=== PATIENT | male | born 1950 | race Caucasian/White ===

== ENCOUNTER → 2024-08-14 | Outpatient (CLI) | payer MEDICARE, SELFPAY ==
[2024-08-14 09:08] LABS: Cardiac Risk Estimate 5.9 RATIO (4.0-6.7); Cholesterol 194 mg/dL (132-200); HDL Cholesterol 33 mg/dL (40-60); LDL Cholesterol,Calculated 135 mg/dL (0-130); Triglycerides 132 mg/dL (30-150)
== END | disposition home or self-care (01) ==
LOC: COPL 07:07
PROVIDERS: PCP Family Medicine; Referring Provider Internal Medicine Cardiovascular Disease; Visit Provider Internal Medicine Cardiovascular Disease
DX: Z01.818 Encounter for other preprocedural examination (principal); R94.31 Abnormal electrocardiogram [ECG] [EKG]
CPT/HCPCS: 36415; 80061

== ENCOUNTER → 2024-12-17 | Outpatient (CLI) | payer MEDICARE, SELFPAY ==
--- NOTE | 2024-12-17 08:00 | XR_ITS ---
EXAMINATION: PET/CT FUSION SKULL TO THIGH EXAM DATE AND TIME: December 17, 2024 0915 hours Comparison PET/CT scan January 30, 2024, February 04, 2022 INDICATIONS: Diagnosis Hodgkin's lymphoma restaging CTDI:vol (mGy) 7.75 DLP: (mGycm) 804 PROCEDURE: 15.3 mCi FDG was administered intravenously To allow for distribution and uptake of radiotracer, the patient was allowed to rest quietly in a shielded room. Imaging was performed on an integrated 16-slice PET/CT scanner, with scanning from the skull base to the mid thigh. Serum blood glucose at the time of the injection was measured 109 mg/dL. CT scanning was performed without oral or intravenous contrast material. FINDINGS: Head and Neck: Hypermetabolic thyroid lobes The visualized portions of the brain are normal in appearance on CT. Chest: There is no cathy hypermetabolism in the chest. There are no pulmonary nodules. Abdomen and Pelvis: There is no cathy hypermetabolism in retroperitoneal or pelvic chains. The spleen is normal in size and FDG avidity. Musculoskeletal: Marrow uptake is within normal range. IMPRESSION: No interval hypermetabolic lymphadenopathy
== END | disposition home or self-care (01) ==
LOC: CDIM 07:55
PROVIDERS: PCP Family Medicine; Referring Provider Nurse Practitioner Family; Visit Provider Nurse Practitioner Family
DX: C81.71 Other Hodgkin lymphoma, lymph nodes of head, face, and neck (principal)
CPT/HCPCS: 78815; A9552

== ENCOUNTER 2024-12-19 09:03 | Outpatient (RCR) | payer MEDICARE, SELFPAY | END 2024-12-23 23:59 | disposition home or self-care (01) | LOC: SCTC 09:03 | PROVIDERS: PCP Family Medicine; Referring Provider Nurse Practitioner Family; Visit Provider Nurse Practitioner Family | DX: Z08 Encounter for follow-up examination after completed treatment for malignant neoplasm (principal); Z85.71 Personal history of Hodgkin lymphoma; Z92.3 Personal history of irradiation; Z87.891 Personal history of nicotine dependence; Z87.19 Personal history of other diseases of the digestive system; N40.0 Benign prostatic hyperplasia without lower urinary tract symptoms | CPT/HCPCS: 99212; G0463 ==